=== PATIENT | female | born 2000 | race Caucasian/White ===

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

== ENCOUNTER → 2020-06-21 10:51 | Outpatient (CLI) | payer OTHER, MEDICAID, SELFPAY ==
[2020-06-21 11:14] LABS: COVID19 -Nasal RAPID Negative (Negative)
== END ==
PROVIDERS: PCP Family Medicine; Referring Provider Physician Assistant; Visit Provider Physician Assistant
DX: Z11.59 Encounter for screening for other viral diseases (principal)
CPT/HCPCS: 87635

== ENCOUNTER → 2021-03-01 10:00 | Outpatient (CLI) | payer OTHER, MEDICAID, SELFPAY ==
--- NOTE | 2021-03-01 | DI.RAD.S_ITS ---
PROCEDURE: XR SHOULDER RT MIN 2V INDICATIONS: right SHOULDER PAIN TECHNIQUE: 3 views of the shoulder were acquired. COMPARISON: [facility] [place], SYBIL, XR SHOULDER MIN 2VW RT, 03/27/2017, 15:14. FINDINGS: Bones: Slight superior subluxation of the clavicle relative to the acromion which is unchanged since 03/27/17. No acute fracture. Soft tissues: No suspicious soft tissue calcifications. IMPRESSION: Slight superior subluxation of the clavicle relative the acromion however this is unchanged since 2017. Overall, no acute abnormality or interval change. If the patient's pain or other symptoms persist, consider further evaluation with MRI Dictated by: Pravin Zelaya M.D. on 03/01/2021 at 11:19 Approved by: Pravin Zelaya M.D. on 03/01/2021 at 11:30
== END ==
PROVIDERS: PCP Family Medicine; Referring Provider Family Medicine; Visit Provider Family Medicine
DX: M25.511 Pain in right shoulder (principal)
CPT/HCPCS: 73030

== ENCOUNTER → 2022-10-27 17:00 | Outpatient (CLI) | payer OTHER, MEDICAID, SELFPAY ==
--- NOTE | 2022-10-27 | DI.US.S_ITS ---
PROCEDURE: US OB <= 14 WEEKS FETUS INDICATIONS: DATING AND VIABILTY OUTSIDE/PRIOR DATING DATA: Last menstrual period (LMP): 08/22/2022. LMP-based estimated date of delivery (BRANDIE): 05/29/2023. First dating scan (date and location): 10/27/2022 Estimated date of delivery (BRANDIE) from first dating scan: 05/29/2023. TECHNIQUE: Real-time scanning was performed of the fetus and maternal pelvic organs, with image documentation. Endovaginal scanning was also performed to better visualize the fetus and maternal ovaries. COMPARISON: None. FINDINGS: Yolk sac is present. Heart rate is 175 beats per minute. [place]-rump length is 2.3 centimeters. Mean gestational sac diameter is 4.3 centimeters. Ultrasound age is 9 weeks and 3 days. Left ovary was not visualized. Unremarkable right ovary. IMPRESSION: Single living intrauterine at an ultrasound age of 9 weeks and 3 days, concordant with the reported LMP. Dictated by: Yuri Ahn M.D. on 10/28/2022 at 11:37 Approved by: Yuri Ahn M.D. on 10/28/2022 at 11:39
== END ==
PROVIDERS: PCP Family Medicine; Referring Provider Family Medicine; Visit Provider Family Medicine
DX: Z34.00 Encounter for supervision of normal first pregnancy, unspecified trimester (principal); Z3A.09 9 weeks gestation of pregnancy
CPT/HCPCS: 76801

== ENCOUNTER → 2022-11-19 11:08 | Outpatient (CLI) | payer OTHER, MEDICAID, SELFPAY ==
[2022-11-19 12:26] LABS: Add Manual Diff / Slide Review NO; Basophils Absolute Auto 0 /uL (0-100); Basophils Percent Auto 0.3 % (0-2); Eosinophils Absolute Auto 0 /uL (0-450); Eosinophils Percent Auto 0.4 % (2-4); Hematocrit 35.5 % (36-46); Lymphocytes Absolute Auto 1800 /uL (1100-4500); Lymphocytes Percent Auto 18.1 % (25-40); Mean Corpuscular HGB Conc 33.8 % (30-36); Mean Corpuscular Volume 82.6 fL (80-100); Monocytes Absolute Auto 400 /uL (0-900); Monocytes Percent Auto 4.5 % (3-14); Neutrophils Absolute Auto 7700 /uL (1500-7000); Neutrophils Percent Auto 76.7 % (50-75); Platelet Count 272 X10^3/uL (150-400); Red Cell Distribution Width 13.6 % (11.6-14.8); White Blood Cell Count 10.1 X10^3/uL (4.5-11.0)
[2022-11-20 06:10] LABS: RPR Screen Non Reactive (Non Reactive)
[2022-11-20 11:48] LABS: Varicella IgG Antibody <135 index (Immune >165)
[2022-11-20 16:41] LABS: Hepatitis B Surface Antigen NEGATIVE s/c (NEGATIVE); Rubella Antibody IgG 38.2 IU/mL (>15)
[2022-11-20 16:50] LABS: HIV 1 & 2 Ab/Ag 4th Gen Combo NEGATIVE (NEGATIVE); Hep C Virus Ab w/Reflex Quant NEGATIVE s/c (NEGATIVE)
== END ==
PROVIDERS: PCP Family Medicine; Referring Provider Obstetrics & Gynecology; Visit Provider Obstetrics & Gynecology
DX: Z34.00 Encounter for supervision of normal first pregnancy, unspecified trimester (principal)
CPT/HCPCS: 36415; 80055; 86787; 86803; 86850; 86900; 86901; 87086; 87389

== ENCOUNTER → 2022-12-17 09:23 | Outpatient (CLI) | payer OTHER, MEDICAID, SELFPAY ==
[2022-12-19 20:47] LABS: AFP Value 51.7 ng/mL (.); Gest Age on Col Date 16.7 weeks (.); Insulin Dep Diabetes No (.); OSBR Risk 1IN 2734 (.); Results Report (.); Test Results *Screen Negative* (.)
== END ==
PROVIDERS: PCP Family Medicine; Referring Provider Obstetrics & Gynecology; Visit Provider Obstetrics & Gynecology
DX: Z34.02 Encounter for supervision of normal first pregnancy, second trimester (principal); Z3A.16 16 weeks gestation of pregnancy
CPT/HCPCS: 36415; 82105

== ENCOUNTER → 2023-01-12 15:09 | Outpatient (CLI) | payer OTHER, MEDICAID, SELFPAY ==
--- NOTE | 2023-01-12 15:12 | DI.US.S_ITS ---
PROCEDURE: US OB >= 14 WEEKS FETUS INDICATIONS: anatomy scan OUTSIDE/PRIOR DATING DATA: Last menstrual period (LMP): 08/22/2022. LMP-based estimated date of delivery (BRANDIE): 05/29/2023. First dating scan (date and location): 10/27/2022. Estimated date of delivery (BRANDIE) from first dating scan: 05/29/2023. The calculations are made using the ultrasound BRANDIE of 05/29/2023. TECHNIQUE: Real-time scanning was performed of the fetus, with image documentation and biometric measurements. COMPARISON: [facility], , OB <= 14 WEEKS FETUS, 10/27/2022, 17:15. FINDINGS: General: A single living intrauterine gestation is present. Presentation: Breech. Placenta: Placental position is anterior, without previa. Amniotic fluid index: 17.1 cm, normal range is 5-24 cm. Single deepest vertical pocket is 5.5 cm. heart rate: 145 beats per minute. Maternal cervical canal: 3.6 cm long. Normal lower limit is 2.5 cm. biometrics: Biparietal diameter: 4.9 cm, 20 weeks 6 days Head circumference: 17.9 cm, 20 weeks 3 days Abdominal circumference: 15.7 cm, 20 weeks 6 days Femur length: 3.2 cm, 19 weeks 6 days Clinically estimated gestational age: 20 weeks 3 days Composite gestational age from present scan: 20 weeks 4 days Estimated weight and percentile: 355 g, 47th percentile Anatomic survey: Neuro: Ventricles are non-dilated at less than 10 mm. Cisterna magna is normal at 3-11 mm. Cerebellum is normal in size and morphology. Nuchal skin fold: Normal at less than 6 mm between 14-21 weeks gestational age. Face: Nose and lips, facial profile are normal. Spine: No evidence for spina bifida. Heart: 4-chambered heart is present, with normal ventricular outflow tracts. Diaphragm: Diaphragm is intact. Stomach: Left-sided stomach is present. Kidneys: No hydronephrosis. Normal is less than 5 mm in 2nd trimester, less than 7 mm in 3rd trimester. Cord: 3-vessel cord has orthotopic insertion. Bladder: Normal in size. Extremities: All 4 extremities identified. IMPRESSION: 1. [place] living intrauterine at 20 weeks 4 days based on today's ultrasound. Fetus is in the 47th percentile for weight. 2. Normal placenta and amniotic fluid. 3. Normal and complete anatomic survey. We strive to produce accurate, complete, and clear reports of imaging services. To assist us in improving patient care, this report was composed using standard report templates and voice recognition software. Therefore, it may contain abnormal punctuation, insertions and/or omissions. Occasional wrong-word or sound-alike substitutions may occur. Though we review the report and make efforts to correct it, we do recommend that the report be read carefully in proper context to recognize any text inaccuracies. Dictated by: Bora Johns M.D. on 01/12/2023 at 17:15 Approved by: Bora Johns M.D. on 01/12/2023 at 17:18
== END ==
PROVIDERS: PCP Family Medicine; Referring Provider Obstetrics & Gynecology; Visit Provider Obstetrics & Gynecology
DX: Z34.02 Encounter for supervision of normal first pregnancy, second trimester (principal); Z3A.20 20 weeks gestation of pregnancy
CPT/HCPCS: 76811

== ENCOUNTER → 2023-03-03 07:43 | Outpatient (CLI) | payer OTHER, MEDICAID, SELFPAY ==
[2023-03-03 12:21] LABS: Hematocrit 28.2 % (36-46); Hemoglobin 9.5 g/dL (12.0-16.0)
[2023-03-03 13:20] LABS: GTT (PREG) 1 Hour PP 50gm Dose 89 mg/dL (76-139)
== END ==
PROVIDERS: PCP Family Medicine; Referring Provider Obstetrics & Gynecology; Visit Provider Obstetrics & Gynecology
DX: Z34.02 Encounter for supervision of normal first pregnancy, second trimester (principal); Z3A.26 26 weeks gestation of pregnancy
CPT/HCPCS: 82950; 85014; 85018

== ENCOUNTER → 2023-03-30 08:30 | Oncology outpatient (ONC) | payer OTHER, MEDICAID, SELFPAY ==
--- NOTE | 2023-03-12 09:49 | PC.NURSE ---
VENOFER CLARIFICATION OF ORDER This RN called to clarify order of Venofer 200mg IV. Per Dr. Marcial/Lacey RN: Okay to give a total of 5 infusions, 2-3 days apart. Order updated and given to scheduling to call patient.
[2023-03-23 08:31] VITALS: BP 122/52; PULSE 87; RESP 16; TEMP 36.2; O2SAT 98
[2023-03-23] MEDS: IRON SUCROSE 200 MG in SODIUM CHLORIDE 0.9% 100 ML 220 MG IV (08:50)
[2023-03-26 08:32] VITALS: BP 112/62; PULSE 77; RESP 16; TEMP 36.2; O2SAT 98
[2023-03-26] MEDS: IRON SUCROSE 200 MG in SODIUM CHLORIDE 0.9% 100 ML 220 MG IV (08:50)
[2023-03-30 08:56] VITALS: BP 108/53; PULSE 89; RESP 16; TEMP 36.9; O2SAT 98
[2023-03-30] MEDS: IRON SUCROSE 200 MG in SODIUM CHLORIDE 0.9% 100 ML 220 MG IV (09:51)
== END ==
PROVIDERS: PCP Family Medicine; Referring Provider Obstetrics & Gynecology; Visit Provider Obstetrics & Gynecology
DX: O99.013 Anemia complicating pregnancy, third trimester (principal); Z3A.30 30 weeks gestation of pregnancy
CPT/HCPCS: 96365; J1756

== ENCOUNTER → 2023-05-05 08:05 | Outpatient (CLI) | payer OTHER, MEDICAID, SELFPAY ==
[2023-05-06 11:19] LABS: Strep Grp B PCR POS for Grp B Strep
== END ==
PROVIDERS: PCP Family Medicine; Visit Provider Specialist
DX: Z34.93 Encounter for supervision of normal pregnancy, unspecified, third trimester (principal); Z3A.36 36 weeks gestation of pregnancy
CPT/HCPCS: 87653

== ENCOUNTER 2023-05-05 08:35 | Outpatient (CLI) | payer OTHER, MEDICAID, SELFPAY ==
--- NOTE | 2023-05-05 09:11 | P.TNLD_ITS ---
Visit Information Visit Information Date of evaluation: 05/05/23 Primary OB Provider: Kerry Ridley On-call OB Provider: Radha Marcial Reason for Evaluation: Yes non-stress test non-stress test reason: hypertension/pre-eclampsia Vital Signs Vital Signs: Blood pressure 110/72 [facility] Medical History (Updated 05/05/23 @ 09:14 by Radha Marcial MD) Abdominal pain ADHD Anorexia nervosa (~2012) Anxiety (~2015) Contusion of right shoulder Depression (~2014) Eating disorder Flat feet Muscle strain of left forearm Pharyngitis Right shoulder strain Shoulder pain (~2013) URI (upper respiratory infection) Surgical History (Updated 11/12/22 @ 08:57 by Vianey Leos RN) History of removal of skin mole (~2012) Family History (Updated 11/27/22 @ 20:09 by Kimberlyn Castrejon) Father Sudden cardiac Grandfather Eye cancer Grandmother Diabetes mellitus Osteoarthritis Tendon disorder Grandmother Lung disease Social History marital status: unmarried,living together number of children: 0 household members: significant other lives independently: Yes caregiver/support person: No housing: apartment pets and animals: Yes (1) education level: high school occupational status: unemployed current occupational exposures/hazards: No special joce needs: No travel history: recent ([place]) seatbelt use: always water heater temp set < 120 deg: Yes working smoke detector in home: Yes fire extinguisher in home: Yes carbon monox detector in home: Yes firearms in home: Yes firearms unloaded and locked: Yes do you feel safe at home: Yes Smoking Status: Former smoker (quit vaping when she learned she was ) Tobacco: How many years used: 6 second hand exposure: Yes (s/o smokes, not around pt) alcohol intake: former (rarely when not ) substance use type: marijuana (not since learning of ) during the past year weight has: increased > 10 lbs well-balanced diet: about half the time daily servings fruits/ve-4 caffeine: Yes (occasional latte, but not daily) Type(s) of exercise: none Evaluation Evaluation Baseline heart rate: 130 Variability: Moderate (11-25) monitor accelerations: Present Monitor Decelerations: Absent Contraction Frequency (minutes): 0 Category of Tracing: Reactive Status: Category l Diagnosis, Plan/Disposition Final Diagnosis (1) Elevated blood pressure affecting in third trimester, antepartum: Status: Acute (2) Proteinuria affecting in third trimester: Status: Acute (3) 36 weeks gestation of : Status: Acute Plan/Disposition Plan: Reactive nonstress test. Blood pressure lower on Labor and delivery. PIH labs pending. Follow-up in 1 week or sooner if concerns. OB Disposition: home
[2023-05-05 10:02] LABS: Add Manual Diff / Slide Review NO; Basophils Absolute Auto 0 /uL (0-100); Basophils Percent Auto 0.3 % (0-2); Eosinophils Absolute Auto 0 /uL (0-450); Eosinophils Percent Auto 0.6 % (2-4); Hematocrit 32.6 % (36-46); Lymphocytes Absolute Auto 1100 /uL (1100-4500); Lymphocytes Percent Auto 13.3 % (25-40); Mean Corpuscular HGB Conc 33.8 % (30-36); Mean Corpuscular Hemoglobin 27.7 PG (26-34); Mean Corpuscular Volume 81.9 fL (80-100); Monocytes Absolute Auto 500 /uL (0-900); Monocytes Percent Auto 6.6 % (3-14); Neutrophils Absolute Auto 6500 /uL (1500-7000); Neutrophils Percent Auto 79.2 % (50-75); Platelet Count 142 X10^3/uL (150-400); Red Blood Cell Count 3.99 X10^6/uL (4.0-5.2); Red Cell Distribution Width 20.7 % (11.6-14.8); White Blood Cell Count 8.2 X10^3/uL (4.5-11.0)
[2023-05-05 10:30] LABS: Anisocytosis 1+
[2023-05-05 10:33] LABS: Aspartate Aminotransferase 23 IU/L (14-36); BUN Creatinine Ratio 10.2 (6-22); Blood Urea Nitrogen 5 mg/dL (7-17); Estimated Glomerular Filt Rate > 60 mL/min (>60); Uric Acid 1.9 mg/dL (2.5-6.2)
[2023-05-05 10:38] LABS: Uric Acid 1.8 mg/dL (2.5-6.2)
[2023-05-05 10:43] LABS: Creatinine Urine Random 40.5 mg/dL; Protein (Total) Urine Random 12 mg/dL (0-12); Protein Creatinine Ratio Urine 0.29 GRAM/24H
== END 2023-05-05 09:40 | disposition home or self-care (01) ==
LOC: LABOR 09:04 → OB 05-06 12:50
PROVIDERS: PCP Family Medicine; Referring Provider Specialist; Visit Provider Specialist
DX: O12.13 Gestational proteinuria, third trimester (principal); R03.0 Elevated blood-pressure reading, without diagnosis of hypertension; O26.893 Other specified pregnancy related conditions, third trimester; Z3A.36 36 weeks gestation of pregnancy; Z34.93 Encounter for supervision of normal pregnancy, unspecified, third trimester
CPT/HCPCS: 36415; 59025; 82570; 84156; 84450; 84550; 85025; 87653; G0378; G0379

== ENCOUNTER 2023-05-11 10:05 | Observation (INO) | payer OTHER, MEDICAID, SELFPAY ==
[2023-05-11] MEDS: OXYCODONE IR 5 MG TABLET PO ×2 (11:07→12:15)
[2023-05-11 11:09] LABS: Creatinine Urine Random 130.3 mg/dL; Protein (Total) Urine Random 11 mg/dL (0-12); Protein (Total) Urine Random 12 mg/dL (0-12); Protein Creatinine Ratio Urine 0.08 GRAM/24H
[2023-05-11 11:45] LABS: Aspartate Aminotransferase 36 IU/L (14-36); BUN Creatinine Ratio 11.6 (6-22); Blood Urea Nitrogen 5 mg/dL (7-17); Estimated Glomerular Filt Rate > 60 mL/min (>60)
[2023-05-11 11:45] LABS: Add Manual Diff / Slide Review NO; Basophils Absolute Auto 0 /uL (0-100); Basophils Percent Auto 0.2 % (0-2); Eosinophils Absolute Auto 100 /uL (0-450); Eosinophils Percent Auto 0.7 % (2-4); Hematocrit 34.4 % (36-46); Hemoglobin 11.5 g/dL (12.0-16.0); Lymphocytes Absolute Auto 1300 /uL (1100-4500); Lymphocytes Percent Auto 12.7 % (25-40); Mean Corpuscular HGB Conc 33.6 % (30-36); Mean Corpuscular Volume 80.6 fL (80-100); Monocytes Absolute Auto 600 /uL (0-900); Monocytes Percent Auto 5.6 % (3-14); Neutrophils Absolute Auto 8400 /uL (1500-7000); Neutrophils Percent Auto 80.8 % (50-75); Platelet Count 190 X10^3/uL (150-400); Red Blood Cell Count 4.27 X10^6/uL (4.0-5.2); Red Cell Distribution Width 20.8 % (11.6-14.8); White Blood Cell Count 10.4 X10^3/uL (4.5-11.0)
[2023-05-11] MEDS: ACETAMINOPHEN 325 MG TABLET 975 MG PO (12:20)
[2023-05-11 12:24] LABS: Anisocytosis 2+
[2023-05-11] MEDS: ONDANSETRON 4 MG ODT SL (12:55)
== END 2023-05-11 15:25 | disposition home or self-care (01) ==
PROVIDERS: Admitting Provider Obstetrics & Gynecology; PCP Family Medicine; Referring Provider Obstetrics & Gynecology; Visit Provider Obstetrics & Gynecology
DX: O16.3 Unspecified maternal hypertension, third trimester (principal); O26.893 Other specified pregnancy related conditions, third trimester; R51.9 Headache, unspecified; Z3A.37 37 weeks gestation of pregnancy
CPT/HCPCS: 59025; 82570; 84156; 84450; 84550; 85025; G0378; G0379

== ENCOUNTER 2023-05-11 18:58 | Inpatient (IN) | payer OTHER, MEDICAID, SELFPAY ==
[2023-05-11] MEDS: LACTATED RINGERS 1,000 ML 100 ML IV (20:46)
[2023-05-11] MEDS: DINOPROSTONE VAG (CERVIDIL) 10 MG VAG (20:47)
[2023-05-11 20:55] LABS: Basophils Absolute Auto 0 /uL (0-100); Basophils Percent Auto 0.3 % (0-2); Eosinophils Absolute Auto 0 /uL (0-450); Eosinophils Percent Auto 0.4 % (2-4); Hematocrit 34.3 % (36-46); Hemoglobin 11.5 g/dL (12.0-16.0); Lymphocytes Absolute Auto 1500 /uL (1100-4500); Lymphocytes Percent Auto 12.1 % (25-40); Mean Corpuscular HGB Conc 33.4 % (30-36); Mean Corpuscular Hemoglobin 26.9 PG (26-34); Mean Corpuscular Volume 80.4 fL (80-100); Monocytes Absolute Auto 700 /uL (0-900); Monocytes Percent Auto 5.6 % (3-14); Neutrophils Absolute Auto 10300 /uL (1500-7000); Neutrophils Percent Auto 81.6 % (50-75); Platelet Count 210 X10^3/uL (150-400); Red Blood Cell Count 4.27 X10^6/uL (4.0-5.2); Red Cell Distribution Width 20.7 % (11.6-14.8); White Blood Cell Count 12.6 X10^3/uL (4.5-11.0)
[2023-05-11 20:57] LABS: Add Manual Diff / Slide Review SLIDE REVIEW
[2023-05-11 21:51] VITALS: BP 118/69
[2023-05-11 21:56] LABS: Macrocytosis 1+; Polychromasia 1+
--- NOTE | 2023-05-12 08:53 | PM.OBHP.IH.1 ---
OB HPI Date/Time Date of admission: 05/11/23 Date Patient Seen: 05/12/23 Time Patient Seen: 08:53 History of Present Condition Chief complaint: OB BRANDIE Calculator Estimated Delivery Date Method Current WG Current Estimate 05/29/23 LMP (Certain) 37w 4d Estimated Gestational Age (weeks): 37+4 : 1 Para: 0 care: good care, initiated at week # (12), number of visits (9) and pounds weight gain (75) Dating criteria OB: LMP confirmed by 1st trimester US Ultrasounds: normal 1st trimester US and normal mid trimester US Obstetrical complications: preeclampsia Medical complications OB: none Indications Indication for induction OB: gestational HTN/pre-eclampsia (Persistent headache with elevated BP) Preadmission Labs Last OB Lab Results: Blood Type A Positive 05/11/23 20:20 Antibody Screen Negative 05/11/23 20:20 Hematocrit 34.3 % (36-46) L 05/11/23 20:20 Hemoglobin 11.5 g/dL (12.0-16.0) L 05/11/23 20:20 Hepatitis B Surface Antigen Negative s/c (NEGATIVE) 11/19/22 11:13 Hepatitis C Antibody Negative s/c (NEGATIVE) 11/19/22 11:13 Rubella Antibody 38.2 IU/mL (>15) 11/19/22 11:13 Varicella-Zoster IgG Antibody <135 index (Immune >165) L 11/19/22 11:13 Glucose 1 Hour 89 mg/dL (76-139) 03/03/23 07:46 Group B Streptococcus (PCR) Pos for grp b strep H 05/05/23 08:05 -: Chlamydia screen: negative, Gonorrhea screen: negative and Urine: negative -: PAP smear: Normal Genetic Screens: Cell-free DNA: Normal (normal female) and Alpha-fetoprotein: Normal External Labs -: Urine: negative Evaluation Evaluation Baseline heart rate: 135 Variability: Moderate (11-25) monitor accelerations: Present Monitor Decelerations: Absent Contraction Frequency (minutes): 4 Uterine Contraction Intensity: Mild Status: Category l Dilation (cm): 1.5 Effacement (%): 80 Dilation: 1-2 cm Effacement: >/=80% station: 0 Position of cervix: anterior Consistency: medium Chew score: 9 [facility] Medical History (Updated 05/05/23 @ 09:14 by Radha Marcial MD) Anorexia nervosa (~2012) ADHD Shoulder pain (~2013) Anxiety (~2015) Depression (~2014) Eating disorder Flat feet URI (upper respiratory infection) Pharyngitis Abdominal pain Muscle strain of left forearm Contusion of right shoulder Right shoulder strain Surgical History (Updated 11/12/22 @ 08:57 by Vianey Leos RN) History of removal of skin mole (~2012) Family History (Updated 11/27/22 @ 20:09 by Kimberlyn Castrejon) Father Sudden cardiac Grandfather Eye cancer Grandmother Diabetes mellitus Osteoarthritis Tendon disorder Grandmother Lung disease Social History marital status: unmarried,living together number of children: 0 household members: significant other lives independently: Yes caregiver/support person: No housing: apartment pets and animals: Yes (1) education level: high school occupational status: unemployed current occupational exposures/hazards: No special joce needs: No travel history: recent ([place]) seatbelt use: always water heater temp set < 120 deg: Yes working smoke detector in home: Yes fire extinguisher in home: Yes carbon monox detector in home: Yes firearms in home: Yes firearms unloaded and locked: Yes do you feel safe at home: Yes Smoking Status: Former smoker (quit vaping when she learned she was ) Tobacco: How many years used: 6 second hand exposure: Yes (s/o smokes, not around pt) alcohol intake: former (rarely when not ) substance use type: marijuana (not since learning of ) during the past year weight has: increased > 10 lbs well-balanced diet: about half the time daily servings fruits/ve-4 caffeine: Yes (occasional latte, but not daily) Type(s) of exercise: none Meds Home Medications and Allergies Home Medications Medication Instructions Recorded Confirmed Type [id number] 400 mcg-om3 35 mg-dha 25 tab PO DAILY 11/12/22 05/05/23 History mg-epa 5 mg-fish oil chewable tablet pyridoxine (vitamin B6) 50 mg 50 mg PO DAILY 11/12/22 05/12/23 History tablet sertraline 50 mg tablet (Zoloft) 50 mg PO DAILY #30 tabs 11/19/22 05/12/23 Rx Allergies Allergy/AdvReac Type Severity Reaction Status Date / Time Sulfa (Sulfonamide Allergy Intermediate Hives Verified 05/05/23 08:07 Antibiotics) [SULFA (SULFONAMIDE ANTIBIOTICS)] OB Exam Narrative Exam Narrative: Generally: Patient is sitting up in bed, no acute distress Lungs: Clear to auscultation bilaterally Cardiovascular: Regular rate and rhythm Fundal height: 38 cm Estimated weight: 7 lb Extremities: 1+ edema, 2+ DTRs upper extremities, 1+ DTRs lower extremities, negative clonus Objective Labs 05/11/23 20:20 Labs: Laboratory Results - last 24 hr 05/11/23 20:20 WBC 12.6 H RBC 4.27 Hgb 11.5 L Hct 34.3 L MCV 80.4 MCH 26.9 MCHC 33.4 RDW 20.7 H Plt Count 210 Neut % (Auto) 81.6 H Lymph % (Auto) 12.1 L [place] % (Auto) 5.6 Eos % (Auto) 0.4 L Baso % (Auto) 0.3 Neut # (Auto) 86875 H Lymph # (Auto) 1500 [place] # (Auto) 700 Eos # (Auto) 0 Baso # (Auto) 0 RBC Morphology See below Polychromasia 1+ H Macrocytosis 1+ H Blood Type A Positive Antibody Screen Negative Assessment and Plan Assessment and Plan Assessment and Plan narrative: Assessment: 22-year-old 1 para 0 at 37 and 4/7 weeks gestation with persistent headache for 6 days with elevated blood pressures and proteinuria Brisk upper extremity DTRs GBS positive Plan: Status post 1 dose of Cervidil last evening Favorable cervix Patient may shower and eat breakfast Begin Pitocin induction of labor Begin ampicillin for group B strep prophylaxis Time Spent with Patient Total time spent with greater than 50% in coordination of care (as documented) at patient's floor/unit and/or counseling patient:: 15-24 minutes
[2023-05-12] MEDS: AMPICILLIN 2,000 MG in SODIUM CHLORIDE 0.9% 100 ML 200 MG IV (10:18)
[2023-05-12] MEDS: LACTATED RINGERS 1,000 ML 100 ML IV (10:19)
[2023-05-12] MEDS: OXYTOCIN PREMIX 30 UNIT/500 ML PLAST..BAG IV (10:34)
[2023-05-12] MEDS: AMPICILLIN 1,000 MG in SODIUM CHLORIDE 0.9% 100 ML 200 MG IV ×2 (13:55→18:40)
--- NOTE | 2023-05-12 15:30 | PM.OBPNLAB ---
Date/Time Date Patient Seen: 05/12/23 Time Patient Seen: 15:31 Pain Control Pain control: tolerating well Pelvic Exam Dilation (cm): 1.8 Effacement (%): 80 station: 0 Amniotic membrane status: Intact Contractions Contractions on admission: none Pitocin rate (mU/min): 16 Contraction frequency (min): 3 Contraction duration (min): 1 Contraction intensity: Moderate Status status: Category l Heart Rate Baseline: 135 Monitor Accelerations: Present Monitor Decelerations: Absent Monitor Variability: Moderate Assessment and Plan Assessment: induction ongoing Plan: continuous present management Comments: Will attempt AROM in a few hours
--- NOTE | 2023-05-12 19:30 | P.PNOB_ITS ---
Date/Time Date Patient Seen: 05/12/23 Time Patient Seen: 19:31 Pain Control Pain control: tolerating well Pelvic Exam Dilation (cm): 1.5 Effacement (%): 80 station: 0 Amniotic membrane status: Intact Contractions Contractions on admission: none Monitor mode: External Pitocin rate (mU/min): 18 Contraction frequency (min): 3 Contraction duration (min): 1 Contraction intensity: Mild Status status: Category l Heart Rate Baseline: 135 Monitor Accelerations: Present Monitor Decelerations: Absent Monitor Variability: Moderate Assessment and Plan Assessment: induction ongoing Comments: Discontinue Pitocin overnight Discontinue antibiotics overnight Ambien as needed for sleep 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
[2023-05-12] MEDS: ZOLPIDEM 5 MG TABLET 10 MG PO (20:21)
[2023-05-13] MEDS: LACTATED RINGERS 1,000 ML 100 ML IV (08:37)
[2023-05-13] MEDS: AMPICILLIN 1,000 MG in SODIUM CHLORIDE 0.9% 100 ML 200 MG IV ×4 (08:37→21:28)
[2023-05-13] MEDS: OXYTOCIN PREMIX 30 UNIT/500 ML PLAST..BAG IV (08:38)
--- NOTE | 2023-05-13 09:35 | PM.OBPNLAB ---
Date/Time Date Patient Seen: 05/13/23 Time Patient Seen: 09:35 Pain Control Pain control: tolerating well Pelvic Exam Dilation (cm): 1.5 Effacement (%): 80 station: 0 Amniotic membrane status: Intact Contractions Monitor mode: External Pitocin rate (mU/min): 4 Contraction frequency (min): 0 Contraction intensity: Mild Status status: Category l Heart Rate Baseline: 125 Monitor Accelerations: Present Monitor Decelerations: Absent Monitor Variability: Moderate Assessment and Plan Assessment: induction ongoing Comments: Will perform AROM after second dose of antibiotics Epidural as necessary Expected management to spontaneous vaginal delivery
[2023-05-13] MEDS: ACETAMINOPHEN 325 MG TABLET 975 MG PO ×2 (10:04→22:14)
--- NOTE | 2023-05-13 13:42 | PM.OBPNLAB ---
Date/Time Date Patient Seen: 05/13/23 Time Patient Seen: 13:42 Pain Control Pain control: tolerating well Pelvic Exam Dilation (cm): 3 Effacement (%): 85 station: 0 Amniotic membrane status: Intact Contractions Contractions on admission: none Monitor mode: External Pitocin rate (mU/min): 14 Contraction frequency (min): 3 Contraction duration (min): 1 Contraction pattern: Regular Contraction intensity: Mild Status status: Category l Heart Rate Baseline: 125 Monitor Accelerations: Present Monitor Decelerations: Absent Monitor Variability: Moderate Assessment and Plan Assessment: induction ongoing Comments: AROM with copious clear amniotic fluid Epidural prn Expectant management to
[2023-05-13] MEDS: FENT 2MCG/ML BUPIV 0.1% EPI 200 MCG/100 ML PLAST..BAG 8 MCG EPIDURAL (17:05)
--- NOTE | 2023-05-13 17:06 | PM.OBPNLAB ---
Date/Time Date Patient Seen: 05/13/23 Time Patient Seen: 17:06 Pain Control Pain control: epidural (Just placed) Pelvic Exam Dilation (cm): 4 Effacement (%): 85 station: 0 Amniotic membrane status: Ruptured Contractions Contractions on admission: none Monitor mode: External Pitocin rate (mU/min): 18 Contraction frequency (min): 3 Contraction pattern: Regular Contraction intensity: Mild Status status: Category l Heart Rate Baseline: 135 Monitor Accelerations: Present Monitor Decelerations: Absent Monitor Variability: Moderate Assessment and Plan Assessment: active labor Comments: [id number] with a peanut ball Expected management to spontaneous vaginal delivery
[2023-05-13] MEDS: ONDANSETRON 4 MG/2 ML INJ IV ×2 (17:19→22:11)
[2023-05-14] MEDS: FENT 2MCG/ML BUPIV 0.1% EPI 200 MCG/100 ML PLAST..BAG 8 MCG EPIDURAL (00:02)
[2023-05-14] MEDS: AMPICILLIN 1,000 MG in SODIUM CHLORIDE 0.9% 100 ML 200 MG IV (01:48)
--- NOTE | 2023-05-14 06:13 | P.PCNOB_ITS ---
Events: Induced HTN Labor & Delivery Delivery date: 05/14/23 Intrapartal Events: Prolonged Active Phase and Mild Preeclampsia Cervical ripening method: per misoprostal protocol Induction method: per pitocin protocol Delivery augmentation: rupture of membranes Delivery monitor: external FHT and external uterine Route of delivery: Episiotomy description: None L&D Laceration Description: Vaginal - 1st Degree and Labial (superficial) Delivery repair: vicryl and chromic Quantitative Blood Loss: 110 Anesthesia Type: Epidural Complications: None Narrative: Patient complete and pushed for 58 minutes. At 5:28 a.m., a live female delivered spontaneously in the [facility] presentation, over an intact perineum. A nuchal cord x1 was reduced on the perineum. The was placed on mom's abdomen. Pitocin was given in the IV fluids. After the cord stopped pulsing, the cord was double clamped and cut. Cord bloods were obtained. The placenta delivered intact with a three-vessel cord at 6:00 a.m.. Fundus was massaged to firm. A first-degree vaginal laceration was repaired with 2-0 Vicryl in the usual fashion. Bilateral superficial labial lacerations were repaired with 3-0 chromic in the usual fashion. Hemostasis was achieved. QBL 110 cc. Apgars 6 at 1 minute and 9 at 5 minutes. . Epidural analgesia. Mom and stable to recovery. [place] Baby 1: Infant gender: Female Presentation: vertex Position: Left Occiput Anterior Placenta delivery description: Spontaneous Cord Vessel Description: 3 Vessels, Nuchal Cord (X1), Reduced (On the perineum) and Clamped/Cut (After the cord stopped pulsing) score (1 min): 6 score (5 min): 9 Plan for aftercare: Routine care
[2023-05-14] MEDS: DERMOPLAST SPRAY 20% 60 ML 1 SPRAY TOP (07:47)
[2023-05-14] MEDS: IBUPROFEN 600 MG TABLET PO ×3 (07:48→19:53)
[2023-05-14] MEDS: ACETAMINOPHEN 325 MG TABLET 650 MG PO ×3 (07:49→19:53)
[2023-05-14] MEDS: DOCUSATE 100 MG CAPSULE PO (15:44)
[2023-05-15 06:17] LABS: Hematocrit 30.2 % (36-46); Hemoglobin 10.2 g/dL (12.0-16.0)
[2023-05-15] MEDS: PRENATAL VIT,CALC/IRON/FOLIC 1 TABLET 1 TAB PO (07:54)
[2023-05-15] MEDS: SERTRALINE 50 MG TABLET PO (07:54)
[2023-05-15] MEDS: DOCUSATE 100 MG CAPSULE PO (07:54)
[2023-05-15] MEDS: LANOLIN OINT 7 GM 1 APPLIC TOP (07:55)
[2023-05-15] MEDS: ACETAMINOPHEN 325 MG TABLET 650 MG PO (07:55)
[2023-05-15] MEDS: IBUPROFEN 600 MG TABLET PO (07:55)
[2023-05-15 08:40] VITALS: BP 129/72; PULSE 74; RESP 15; TEMP 36.6
--- NOTE | 2023-05-31 19:00 | PM.OBDS.1 ---
Discharge Providers Provider Date of admission: 05/11/23 18:58 Discharge Date: 05/15/23 Primary care physician: Farshad Ridley MD Consults: 05/11/23 19:19 Consult to Anesthesiology Urgent Comment: Consulting Provider: Anesthesiologist Reason for consultation: Epidural Has provider been notified: No 05/15/23 06:10 Consult to Community Living Coach Routine Comment: Discharge provider: Kerry Ridley MD Summary Hospital Course Date Patient Seen: 05/15/23 Time Patient Seen: 12:30 Diagnoses: 37+2 weeks gestation Preeclampsia Cervidil cervical ripening Induction of labor with Pitocin Spontaneous vaginal delivery First degree vaginal/labial laceration GBS positive Hospital Course: Patient is a 23 year old who presented on 05/11/23 for cervical ripening prior to induction of labor due to preeclampsia. Cervix was favorable on 05/12/23 and she was started on Pitocin. No significant change in cervix by evening. Pitocin was discontinued overnight and restarted on 05/13/23. She progressed in labor and AROM was performed. She received an epidural for pain management. She continued to progress and had an on 05/14/23. Her course was unremarkable and she was discharged to home on 05/15/23. Peripartum Data Delivery Method: Natural Vaginal Laceration Description: Vaginal - 1st Degree and Labial Episiotomy description: None Procedures: Cervidil cervical ripening Pitocin induction of labor Artificial rupture of membranes GBS prophylaxis Spontaneous vaginal delivery First degree laceration of vagina/labia repair complications: none 1: Gender: Female Disposition of : home Status at Discharge Cognitive/behavioral status at discharge: oriented Functional status at discharge: independent ambulation Overall status at discharge: patient is progressing back to baseline Time Spent with Patient Time attestation: Total time spent providing and/or coordinating discharge services: Time spent: Less than 30 minutes Objective Labs 05/15/23 06:05 Exam Narrative Exam Narrative: Generally: Patient is sitting up in bed, holding , no acute distress Fundus: Firm at U -2 Extremities: 1+ edema, negative Homans, 1+ DTRs Discharge Plan Discharge Plan Patient Disposition: Home Provider Discharge Comment: Call with fever, chills, or bleeding vaginally more than a pad in an hour Ibuprofen 600 mg every 6 hours as needed Discharge orders & Medications Prescriptions: Continued sertraline [Zoloft] 50 mg tablet 50 mg PO DAILY Qty: 30 0RF Rx Instructions: Take 1/2 tab PO daily x 7 days, then increase to 1 tab daily [id number] oil 400 mcg-35 mg -25 mg-5 mg tablet,chewable PO DAILY Discontinued pyridoxine (vitamin B6) 50 mg tablet 50 mg PO DAILY Follow up/Referrals: Kerry Ridley MD [Physician] - 6 Weeks (Please follow up with Dr. Ridley on June 26 @ 9:00AM for a 6 week appt. Please call the clinic of center for ANY concerns prior. ) Diet/Activity/Treatments Diet: Regular Activity: Nothing in the vagina for 6 Skin/Wound/Dressing Care Report to your healthcare provider any signs of infection, such as:: chills, fever, increased pain and unusual drainage Visit Report/Discharge Packet Instructions: DI for Labor and Delivery, Vaginal Stand Alone Forms: Discharge: Care, Patient Portal/API, Stroke Signs & Symptoms Discharge Data Primary Care Provider: Farshad Ridley
== END 2023-05-15 09:25 | disposition home or self-care (01) | DRG 560 ==
PROVIDERS: Admitting Provider Obstetrics & Gynecology; PCP Family Medicine; Referring Provider Obstetrics & Gynecology; Visit Provider Obstetrics & Gynecology
DX: O14.94 Unspecified pre-eclampsia, complicating childbirth (principal); O99.824 Streptococcus B carrier state complicating childbirth; Z3A.37 37 weeks gestation of pregnancy; Z37.0 Single live birth; O70.0 First degree perineal laceration during delivery; O63.1 Prolonged second stage (of labor); O26.893 Other specified pregnancy related conditions, third trimester; R51.9 Headache, unspecified
CPT/HCPCS: 36415; 59025; 59050; 59200; 59409; 82570; 84156; 84450; 84550; 85014; 85018; 85025; 86850; 86900; 86901; G0378; G0379; J0290; J2405; J2590

== ENCOUNTER 2023-09-10 09:02 | Emergency (ER) | payer OTHER, MEDICAID, SELFPAY ==
[2023-09-10 09:06] VITALS: BP 129/84; PULSE 73; RESP 18; TEMP 36.8; O2SAT 99; BMI 31.8
--- NOTE | 2023-09-10 09:14 | ED.URI ---
HPI - URI/Sore Throat General Chief Complaint: Upper Respiratory Symptoms Stated Complaint: flu like symptoms/ achey and cough Time Seen by Provider: 09/10/23 09:13 History of Present Illness HPI Narrative: Patient here with and daughter. All 3 have been sick this past week. started with symptoms this past Thursday. COVID at home was negative. Daughter started her symptoms 2 days ago. Patient started with her symptoms last night. Cough cold congestion body aches headache chills. Patient in no distress at this time. Speaking with ease. Vital signs are reassuring. No dyspnea Related Data Home Medications Medication Instructions Recorded Confirmed [id number] 400 mcg-om3 35 mg-dha 25 tab PO DAILY 11/12/22 06/23/23 mg-epa 5 mg-fish oil chewable tablet Previous Rx's Medication Instructions Recorded levonorgestrel-ethinyl estradiol 1 tab PO DAILY control #84 06/23/23 0.1 mg-20 mcg tablet (Aviane) tabs Allergies Allergy/AdvReac Type Severity Reaction Status Date / Time Sulfa (Sulfonamide Allergy Intermediate Hives Verified 06/23/23 09:17 Antibiotics) [SULFA (SULFONAMIDE ANTIBIOTICS)] Review of Systems Review of Systems Narrative: GENERAL: negative positive chills, fatigue, malaise, fever, sweats. HEENT: negative sinus pain, ear pain, sore throat RESPIRATORY: negative dyspnea, positive cough CARDIOVASCULAR: negative chest pain, palpitations GASTROINTESTINAL: negative nausea, vomiting, abdominal pain : negative dysuria, frequency, hematuria MUSCULOSKELETAL: Positive muscle or bony pain SKIN: negative rash, skin lesions NEUROLOGIC: negative weakness, numbness, positive head ROS Unobtainable: All systems reviewed & are unremarkable except as noted in HPI and below Patient History Medical History Anorexia nervosa (~2012) ADHD Shoulder pain (~2013) Anxiety (~2015) Depression (~2014) Eating disorder Flat feet URI (upper respiratory infection) Pharyngitis Abdominal pain Muscle strain of left forearm Contusion of right shoulder Right shoulder strain Surgical History History of removal of skin mole (~2012) Family History Father Sudden cardiac Grandfather Eye cancer Grandmother Diabetes mellitus Osteoarthritis Tendon disorder Grandmother Lung disease Social History marital status: unmarried,living together number of children: 0 household members: significant other lives independently: Yes caregiver/support person: No housing: apartment pets and animals: Yes (1) education level: high school occupational status: unemployed current occupational exposures/hazards: No special joce needs: No travel history: recent seatbelt use: always water heater temp set < 120 deg: Yes working smoke detector in home: Yes fire extinguisher in home: Yes carbon monox detector in home: Yes firearms in home: Yes firearms unloaded and locked: Yes do you feel safe at home: Yes Smoking Status: Former smoker Tobacco: How many years used: 6 second hand exposure: Yes (s/o smokes, not around pt) alcohol intake: former substance use type: marijuana during the past year weight has: increased > 10 lbs well-balanced diet: about half the time daily servings fruits/ve-4 caffeine: Yes (occasional latte, but not daily) Type(s) of exercise: none Smoking Status: Former smoker Exam Narrative Exam Narrative: GENERAL: in no distress, not toxic not dyspneic HEAD: Normocephalic. EYES: Pupils equal round NECK: Trachea midline. CARDIOVASCULAR: Regular rate and rhythm RESPIRATORY: Clear to auscultation. Breath sounds equal bilaterally. No wheezes, rales, or rhonchi. Speaking full sentences. No respiratory distress. GASTROINTESTINAL: Abdomen soft, non-tender EXTREMITIES: No gross deformities. BACK: No flank tenderness. NEURO: AOx4. SKIN: Warm and dry PSYCH: Not anxious, is cooperative Initial Vital Signs Initial Vital Signs: Vital Signs Temperature 98.2 F 09/10/23 09:06 Pulse Rate 73 09/10/23 09:06 Respiratory Rate 18 09/10/23 09:06 Blood Pressure 129/84 09/10/23 09:06 Pulse Oximetry 99 09/10/23 09:06 Oxygen Delivery Method Room Air 09/10/23 09:06 Course Orders Ordered: ED Orders 09/10/23 09:09 Respiratory Panel (Film Array) Stat Vital Signs Vital signs: Vital Signs - 8 hr 09/10/23 09:06 09/10/23 10:32 Temperature 98.2 F 98.6 F Pulse Rate 73 94 H Respiratory Rate 18 Blood Pressure 129/84 136/69 Pulse Oximetry 99 98 Oxygen Delivery Method Room Air Room Air MDM - URI/Sore Throat Lab Data Labs: Lab Results 09/10/23 Range/Units 09:09 Chlamy pneumoniae PCR Not detected (Not Detect) Adenovirus (PCR) Not detected (Not Detect) B.parapertussis DNA PCR Not detected (Not Detecte) Coronavirus OC43 (PCR) Not detected (Not Detect) Coronavirus HKU1 (PCR) Not detected (Not Detect) Coronavirus 229E (PCR) Not detected (Not Detect) SARS-CoV-2 (PCR) Not detected (Not Detecte) Coronavirus NL63 (PCR) Not detected (Not Detect) Human Metapneumovir PCR Not detected (Not Detect) Influenza Type A (PCR) Not detected (Not Detect) Influenza Type B (PCR) Detected H (Not Detect) M. pneumoniae (PCR) Not detected (Not Detect) Parainfluenza 1 (PCR) Not detected (Not Detect) Parainfluenza 2 (PCR) Not detected (Not Detect) Parainfluenza 3 (PCR) Not detected (Not Detect) Parainfluenza 4 (PCR) Not detected (Not Detect) RSV (PCR) Not detected (Not Detect) Entero/Rhino (PCR) Not detected (Not Detect) MDM Narrative Medical decision making narrative: Patient here with and daughter. All 3 have been sick this past week. started with symptoms this past Thursday. COVID at home was negative. Daughter started her symptoms 2 days ago. Patient started with her symptoms last night. Cough cold congestion body aches headache chills. Patient in no distress at this time. Speaking with ease. Vital signs are reassuring. No dyspnea After history and exam respiratory MDM CC: Upper respiratory symptoms Complicating co-morbidities: None Data collected from: Patient and Medical records reviewed: No recent visit for this complaint Differential considered: Includes but not limited to COVID influenza adenovirus RSV rhino virus pneumonia bronchitis Exam documented above, pertinent findings include: Clear lung sounds Lab Test results independently reviewed as above. Pertinent findings: Respiratory panel positive influenza B Imaging studies independently reviewed: None indicated this time. Vital signs are reassuring Treatments: None required at this time Re-evaluations: Reviewed results with patient and . The family likely has infection with influenza B. No prescriptions or antibiotics are indicated. They do understand. Patient in no distress. Return precautions reviewed with patient. She desires discharge home. Discussion: Appropriate for discharge home, exam is reassuring no blood work or imaging indicated. Vital signs are reassuring. Exam is reassuring. Not toxic at discharge. Return precautions reviewed. She desires discharge home. Diagnosis: Influenza B Discharge Plan Departure Patient Disposition: Home Clinical Impression: Influenza Instructions: DI for Influenza -- Adult Activity Restrictions/Additional Instructions: See family doctor in a week for re-evaluation. Keep yourself well hydrated. Return if worse if any questions or concerns. May continue ibuprofen or Tylenol for fever body aches and pain. Prescriptions: No Action levonorgestrel-ethinyl estrad [Aviane] 0.1-20 mg-mcg tablet 1 tab PO DAILY Qty: 84 3RF Rx Instructions: Take one tab by mouth at the same time every day. *Must take for 2 wks before fully covered. [id number] oil 400 mcg-35 mg -25 mg-5 mg tablet,chewable PO DAILY Referrals: Farshad Ridley MD [Primary Care Provider] - Stand Alone Forms: Patient Portal/API
[2023-09-10 10:14] LABS: Adenovirus Not Detected (Not Detect); B. parapertussis Not Detected (Not Detecte); Bordetella pertussis Not Detected (Not Detect); Chlamydophila pneumoniae Not Detected (Not Detect); Coronavirus 229E Not Detected (Not Detect); Coronavirus HKU1 Not Detected (Not Detect); Coronavirus NL 63 Not Detected (Not Detect); Coronavirus OC43 Not Detected (Not Detect); Human Metapneumovirus Not Detected (Not Detect); Human Rhinovirus/Enterovirus Not Detected (Not Detect); Influenza A Not Detected (Not Detect); Influenza B Detected (Not Detect); Mycoplasma pneumoniae Not Detected (Not Detect); Parainfluenza Virus 1 Not Detected (Not Detect); Parainfluenza Virus 2 Not Detected (Not Detect); Parainfluenza Virus 3 Not Detected (Not Detect); Parainfluenza Virus 4 Not Detected (Not Detect); Respiratory Syncytial Virus Not Detected (Not Detect); SARS- CoV-2 Not Detected (Not Detecte)
[2023-09-10 10:32] VITALS: BP 136/69; PULSE 94; TEMP 37; O2SAT 98
== END 2023-09-10 10:45 | disposition home or self-care (01) ==
PROVIDERS: Emergency Provider Emergency Medicine; PCP Family Medicine
DX: J10.1 Influenza due to other identified influenza virus with other respiratory manifestations (principal); Z20.822 Contact with and (suspected) exposure to COVID-19
CPT/HCPCS: 87633; 99282

== ENCOUNTER → 2024-08-16 09:44 | Outpatient (CLI) | payer OTHER, SELFPAY ==
--- NOTE | 2024-08-16 | DI.RAD.S_ITS ---
PROCEDURE: XR HAND LT MIN 3V INDICATIONS: left hand pain TECHNIQUE: 3 views of the hand(s) acquired. COMPARISON: None. FINDINGS: Bones: There are no osseous abnormalities Joints: Moderate left 2nd MCP and 3rd MCP and mild 4th MCP and 5th MCP synovial swelling appreciated. No joint space narrowing or marginal erosions Soft tissues: No soft tissue abnormality. IMPRESSION: MCP synovial swelling which may be a early manifestation of rheumatoid arthritis . please correlate with arthritic serologies and physical exam Dictated by: Jim Tipton M.D. on 08/17/2024 at 9:25 Approved by: Jim Tipton M.D. on 08/17/2024 at 9:27
--- NOTE | 2024-08-16 | DI.RAD.S_ITS ---
PROCEDURE: XR HAND RT MIN 3V INDICATIONS: right hand pain TECHNIQUE: 3 views of the hand(s) acquired. COMPARISON: None. FINDINGS: Bones: There are no osseous abnormalities Joints: The joint spaces are normal in width and alignment without arthritic change. Soft tissues: No soft tissue abnormality. IMPRESSION: Normal. Dictated by: Jim Tipton M.D. on 08/17/2024 at 9:24 Approved by: Jim Tipton M.D. on 08/17/2024 at 9:25
== END ==
LOC: RAD 09:46
PROVIDERS: PCP Family Medicine; Referring Provider Family Medicine; Visit Provider Family Medicine
DX: M79.641 Pain in right hand (principal); M79.642 Pain in left hand
CPT/HCPCS: 73130